=== PATIENT | male | born 1990 | race Caucasian/White ===

== ENCOUNTER 2022-12-01 17:15 | Emergency (ER) | payer MEDICARE, MEDICAID, SELFPAY ==
[2022-12-01 17:16] VITALS: BP 143/130; PULSE 102; RESP 14; TEMP 36.2; O2SAT 98; BMI 29.5
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
== END 2022-12-01 19:17 | disposition home or self-care (01) ==
PROVIDERS: Emergency Provider Emergency Medicine; Visit Provider Emergency Medicine
DX: S63.91XA Sprain of unspecified part of right wrist and hand, initial encounter (principal); S60.221A Contusion of right hand, initial encounter; F17.200 Nicotine dependence, unspecified, uncomplicated; W17.89XA Other fall from one level to another, initial encounter
CPT/HCPCS: 73110; 73130; 99283

== ENCOUNTER 2024-03-18 17:11 | Inpatient (IN) | payer MEDICARE, MEDICAID, SELFPAY ==
[2024-03-18 17:14] VITALS: BP 175/124; PULSE 76; RESP 18; TEMP 36.4; O2SAT 100; BMI 29.9
[2024-03-18 17:54] LABS: Absolute Lymphocyte Count 1.71 X10^3/uL (0.83-4.51); Basophil# 0.06 X10^3/uL; Basophil% 0.4 % (0-1); Eosinophil# 0.09 X10^3/uL; Eosinophils% 0.6 % (0-5); Hematocrit 54.2 % (40-54); Lymphocyte # 1.71 X10^3/ul (0.83-4.51); Lymphocyte % 10.9 % (19-41); Mean Corp Hgb Conc 34.3 g/dL (32-36); Mean Corpuscular Volume 93.3 fL (80-94); Mean Platelet Vol. 9.1 fl (6.2-12.0); Monocyte% 4.5 % (0-10); NRBC Flagged by Analyzer 0 % (0-5); Neutrophil # 12.98 X10^3/uL (2.7-7.7); Platelet Count 198 K/mm3 (150-450); RBC Distribution Width CV 12.9 % (11.6-14.6); RBC Distribution Width SD 44.1 fl (35.1-43.9); Red Blood Count 5.81 M/mm3 (4.6-6.2); White Blood Count 15.6 K/mm3 (4.4-11.0)
[2024-03-18 18:13] LABS: ALB/GLOB Ratio 1.2 RATIO (0.9-2.4); AST(SGOT) 33 U/L (15-37); Alanine Aminotransfer ALT/SGPT 60 U/L (16-61); Albumin, Serum 4.3 g/dL (3.2-5.0); Alkaline Phosphatase 81 U/L (45-117); Anion Gap 7 (5-15); BUN 12 mg/dL (7-18); BUN/Creat Ratio 11.8 RATIO (10-20); Calcium,Total 9.8 mg/dL (8.5-10.1); Chloride 103 mmol/L (98-107); Creatinine, Serum 1.02 mg/dL (0.70-1.30); EST Glomerular Filtration Rate 88 mL/min (>60); Est Glom Filt Rate - Afr Amer 107 mL/min (>60); Estimated Creatinine Clearance 109.83 ml/min; Globulin 3.5 g/dL (2.2-4.2); Glucose 98 mg/dL (74-106); Protein, Total 7.8 g/dL (6.4-8.2); Sodium Level 135 mmol/L (136-145)
[2024-03-18 18:40] LABS: Bacteria 0 SEEN /hpf (None Seen); Mucous, Urine 0 SEEN /hpf (<or=2+); Red Blood Cells-Urine 0 SEEN /hpf (0-5); Squamous Epithelial Cells - UA 0 SEEN /hpf (0-5); White Blood Cells 0 SEEN /hpf (0-5)
[2024-03-18 18:41] LABS: Hemoglobin 18.6 g/dL (13.0-16.5)
--- NOTE | 2024-03-18 18:49 | CT_ITS ---
STUDY: CT ABDOMEN AND PELVIS WITH CONTRAST REASON FOR EXAM: Male, 34 years old. RUQ /RIGHT FLANK PAIN RADIATION DOSAGE (If Supplied By Facility): CTDIvol = ( 13.78 ) mGy, DLP = ( 971.59 ) mGycm TECHNIQUE: Transaxial images were obtained from the dome of the diaphragm to the symphysis pubis without oral contrast. IV 75mL Isovue-370 was administered. Sagittal and coronal images were reconstructed. Individualized dose optimization techniques were used for this CT. COMPARISON: None. FINDINGS: The visualized lung bases are unremarkable. The visualized portions of the heart are within normal limits. There is hepatomegaly with diffuse hepatic enlargement. There is gallbladder wall thickening. There is mild splenomegaly. Normal pancreas. Normal bilateral adrenal glands. Normal right kidney. Normal left kidney. Normal visualized stomach. Normal small intestine. Normal colon. The appendix is visualized and appears normal. Normal abdominal aorta. Normal inferior vena cava. Normal retroperitoneum. Normal urinary bladder. There is no free fluid in the abdomen or pelvis. Normal abdominal wall. There is lumbar dextro scoliosis with degenerative change at L4-5. CT/Abdomen/Pelvis W IV Cont ONLY IMPRESSION: Gallbladder wall thickening. Hepatosplenomegaly. No biliary dilatation. Consider ultrasound to evaluate for potential stones. Electronically Signed: Tyrone Spivey MD at 19:59 EDT ,
[2024-03-18 18:50] LABS: Color, Urine Straw (Yellow); Glucose, Dipstick Normal (Normal); Ketone-Dipstick Negative (Negative); Leukocyte Esterase-Dipstick Negative /ul (Negative); Nitrite-Dipstick Negative (Negative); Occult Blood-Urine Negative /ul (Negative); Protein-Dipstick Negative (Negative); Specific Gravity, Urine 1.015 (1.002-1.030); Urine Bilirubin Dipstick Negative (Negative); Urine Clarity Clear (Clear); Urine Urobilinogen Normal (Normal)
--- NOTE | 2024-03-18 18:52 | ED.VIS.GI ---
HPI HPI - GI History of Present Illness Chief Complaint: Abd Pain Narrative Narrative: 34-year-old male who denies significant past medical history although he states he smokes marijuana, is a smoker, drinks alcohol presents with epigastric and right upper quadrant pain that began this morning. Hard for him to describe what type of pain that is. He states he had a bowel movement this morning, which then turned into small amounts and almost constipation. He denies any fevers or chills. He tried to make himself gag and vomit, but only regurgitated stomach contents/bile. He denies any exacerbating or alleviating factors. No prior abdominal surgeries. [facility] Medical History (Updated 03/18/24 @ 22:02 by Bari Cordero MD) TBI (traumatic brain injury) Home Medications ?Medication ?Instructions ?Recorded ?Last Taken ?Type NK 03/18/24 Unknown History Allergy/AdvReac Type Severity Reaction Status Date / Time clonidine Allergy PT UNSURE Verified 03/18/24 18:18 OF REACTION amphetamine (From Adderall) AdvReac Other Verified 03/18/24 18:18 dextroamphetamine (From AdvReac Other Verified 03/18/24 18:18 Adderall) Social History Smoking Status: Light Smoker (<10/day) ROS ROS ED ROS Narrative Constitutional: No fever, no chills. HEENT: No sore throat. No neck pain. No loss of vision. No rhinorrhea. Cardiovascular: No chest pain. No palpitations. No pedal edema. Respiratory: No cough, no shortness of breath. Abdominal: Epigastric to right upper quadrant abdominal pain. Mild nausea. No vomiting. Genitourinary: No dysuria. No hematuria. Musculoskeletal: No myalgias. No arthralgias. Neurologic: No headaches. No dizziness. No lightheadedness. Skin: No rash. No change in color. Psychiatric: No depression. No anxiety. EXAM Physical Exam Narrative Exam Narrative: Afebrile. Vital signs noted. HEENT: Normocephalic. Atraumatic. PERRL, EOMI. Neck soft and supple. No point tenderness or step off. Cardiovascular: Regular rate and rhythm. No murmurs, rubs, or gallops appreciated. Respiratory: No tachypnea. Lungs clear to auscultation bilaterally. Gastrointestinal: Abdomen soft, mild tenderness right upper quadrant with normoactive bowel sounds. No rebound or guarding. No pain over McBurney's point. No peritoneal signs. Neurological: Awake. Alert. Nonfocal, nonlateralizing. Skin: No rash. Normal color. No pallor. Musculoskeletal: No pedal edema. Full range of motion extremities. Const Vital Signs: 03/18/24 17:14 03/18/24 19:12 03/18/24 21:00 Temperature 97.5 F L Temperature Source Temporal Pulse Rate 76 78 Respiratory Rate 18 18 18 Blood Pressure 175/124 H 178/100 H Blood Pressure Mean 141 126 Pulse Ox 100 100 Oxygen Delivery Method Room Air Room Air Room Air MDM MDM MDM Narrative Medical decision making narrative: Differential diagnosis includes but not limited to colitis versus cholecystitis versus pancreatitis. Initial laboratory work was drawn per nursing protocol. I reviewed his laboratory work and he does have an elevated white count of 15.6 with hemoconcentration of his hemoglobin at 18.6 and hematocrit 54.2, platelet count 198. Sodium is slightly low at 135 with normal potassium of 4.0, BUN normal at 12 with creatinine 1.02, glucose appropriately elevated at 98. LFTs are grossly unremarkable. I added a lipase. Instead of specific ultrasound of the right upper quadrant I thought it best as he has normal liver enzymes to obtain CT imaging with IV contrast to look for any inflammation around the gallbladder and to look at the pancreas as well as he states that he drinks alcohol almost on a daily basis. Urinalysis obtained and is negative for infection. In review of his CT scan radiology report, he has a thickened gallbladder wall and hepatosplenomegaly. Given these findings along with his elevated white count, suspicion is higher for cholecystitis. Gallbladder ultrasound was obtained and radiology report reviewed as well which shows cholecystitis and gallstone with pericholecystic fluid. Patient had been discussed with Dr. Reagan with surgery who admitted the patient to the hospital for surgery tomorrow. Disposition is admit in stable condition. History & Record Review Discussion w/independent historian: Patient Lab Data Attestation: I reviewed the patient's lab results. Labs: Laboratory Results - last 24 hr 03/18/24 03/18/24 03/18/24 17:45 18:35 18:52 WBC 15.6 H RBC 5.81 Hgb 18.6 H* Hct 54.2 H MCV 93.3 MCH 32.0 MCHC 34.3 RDW Std Deviation 44.1 H RDW Coeff of Lucretia 12.9 Plt Count 198 MPV 9.1 Immature Gran % (Auto) 0.600 Neut % (Auto) 83.0 H Lymph % (Auto) 10.9 L Griggs % (Auto) 4.5 Eos % (Auto) 0.6 Baso % (Auto) 0.4 Absolute Neuts (auto) 13.0 H Absolute Lymphs (auto) 1.71 Nucleated RBC % 0 Sodium 135 L Potassium 4.0 Chloride 103 Carbon Dioxide 25.0 Anion Gap 7 BUN 12 Creatinine 1.02 Estim Creat Clear Calc 109.83 Est GFR (MDRD) Af Amer 107 Est GFR (MDRD) Non-Af 88 BUN/Creatinine Ratio 11.8 Glucose 98 Calcium 9.8 Total Bilirubin 0.60 AST 33 ALT 60 Alkaline Phosphatase 81 Total Protein 7.8 Albumin 4.3 Globulin 3.5 Albumin/Globulin Ratio 1.2 Lipase 29 Urine Color Straw Urine Clarity Clear Urine pH 6.0 Ur Specific [place] 1.015 Urine Protein Negative Urine Glucose (UA) Normal Urine Ketones Negative Urine Occult Blood Negative Urine Nitrite Negative Urine Bilirubin Negative Urine Urobilinogen Normal Ur Leukocyte Esterase Negative Urine RBC 0 SEEN Urine WBC 0 SEEN Ur Squamous Epith Cells 0 SEEN Urine Bacteria 0 SEEN Urine Mucus 0 SEEN Radiography Diagnostic Testing: Clinical Impression(s) from Imaging Studies Abdomen/Pelvis CT 03/18/24 18:49 IMPRESSION: Gallbladder wall thickening. Hepatosplenomegaly. No biliary dilatation. Consider ultrasound to evaluate for potential stones. Electronically Signed: Tyrone Spivey MD at 19:59 EDT , Gallbladder Ultrasound 03/18/24 20:44 IMPRESSION: Cholecystitis with gallstone, gallbladder wall thickening, and pericholecystic fluid. The patient was focally tender in the region of the gallbladder. Fatty infiltration of the liver. No biliary dilatation. Electronically Signed: Tyrone Spivey MD at 21:59 EDT , Discharge Plan Dx/Rx/DC Orders Clinical Impression: Acute cholecystitis Disposition Disposition: Acute Care Hospital [facility]
[2024-03-18] MEDS: 0.9% Normal Saline (1000mL) 1,000 ML 999 ML IV (18:56)
[2024-03-18 19:12] VITALS: BP 178/100; RESP 18
[2024-03-18 19:31] LABS: Lipase 29 U/L (13-75)
--- NOTE | 2024-03-18 20:44 | US_ITS ---
STUDY: ABDOMINAL ULTRASOUND - RIGHT UPPER QUADRANT REASON FOR VISIT: Male, 34 years old Pain TECHNIQUE: Ultrasound evaluation of the right upper quadrant was performed with real-time and static vásquez-scale imaging. TECHNICAL QUALITY: Adequate. COMPARISON: CT FINDINGS: Liver: The liver measures 18.1 cm. There is increased echogenicity consistent with fatty infiltration. The bile ducts are within normal limits. There is hepatic color flow. The direction of portal flow is hepatopetal. There is no demonstrated mass lesion. Gallbladder: Normal distended gallbladder. The gallbladder wall measures 4 mm. There is a positive sonographic Jackson''s sign. There is pericholecystic fluid. There is a solitary echogenic gallstone within the gallbladder. Common Bile Duct (C.B.D.): The common bile duct measures 5 mm. Pancreas: Normal size of the head, body and tail of the pancreas. There is normal echogenicity of the pancreas. There is no demonstrated pancreatic mass or cyst. Right Kidney: Normal size of the right kidney. The right kidney measures 10.9 cm. Normal renal cortex. The right cortex measures 1.1 cm. There is no demonstrated renal mass or cyst. There is no right hydronephrosis. US/Gallbladder IMPRESSION: Cholecystitis with gallstone, gallbladder wall thickening, and pericholecystic fluid. The patient was focally tender in the region of the gallbladder. Fatty infiltration of the liver. No biliary dilatation. Electronically Signed: Tyrone Spivey MD at 21:59 EDT ,
[2024-03-18 21:00] VITALS: PULSE 78; RESP 18; O2SAT 100
--- NOTE | 2024-03-18 21:32 | ED.RN ---
Pt called out twice asking to leave because he's hungry. This RN informed pt that he can leave but recommends that he stay d/t further testing requested by doctor.
--- NOTE | 2024-03-18 21:56 | PCM.HP.STD ---
HPI - General HPI Narrative DOUGLAS FLORES, is a 34 M who presents with abdominal pain that started when he woke up this morning. He says the abdominal pain is in the right upper quadrant does not radiate. He said he tried to make himself vomit to make himself feel better but it did not. He denies any nausea. He denies fevers or chills. He has never had this pain before. PFSH Home Medications ?Medication ?Instructions ?Recorded ?Last Taken ?Type NK 03/18/24 Unknown History Allergy/AdvReac Type Severity Reaction Status Date / Time clonidine Allergy PT UNSURE Verified 03/18/24 18:18 OF REACTION amphetamine (From Adderall) AdvReac Other Verified 03/18/24 18:18 dextroamphetamine (From AdvReac Other Verified 03/18/24 18:18 Adderall) Social History Smoking Status: Light Smoker (<10/day) Vital Signs Vital Signs Vital Signs: 03/18/24 17:14 03/18/24 19:12 03/18/24 21:00 Temperature 97.5 F L Temperature Source Temporal Pulse Rate 76 78 Respiratory Rate 18 18 18 Blood Pressure 175/124 H 178/100 H Blood Pressure Mean 141 126 Pulse Ox 100 100 Oxygen Delivery Method Room Air Room Air Room Air Weight Weight: 197 lb 3.2 oz Body Mass Index (BMI) 29.9 Physical Exam Const oriented x3 and no apparent distress Resp normal respiratory effort Cardio regular rate and regular rhythm GI soft to palpation Palpation: tender RUQ and Jackson's sign Extremity normal to inspection Results Lab / Micro Data 03/18/24 17:45 03/18/24 17:45 Labs: Laboratory Results - last 24 hr 03/18/24 17:45: WBC 15.6 H, RBC 5.81, Hgb 18.6 H*, Hct 54.2 H, MCV 93.3, MCH 32.0, MCHC 34.3, RDW Std Deviation 44.1 H, RDW Coeff of Lucretia 12.9, Plt Count 198, MPV 9.1, Immature Gran % (Auto) 0.600, Neut % (Auto) 83.0 H, Lymph % (Auto) 10.9 L, Kern % (Auto) 4.5, Eos % (Auto) 0.6, Baso % (Auto) 0.4, Absolute Neuts (auto) 13.0 H, Absolute Lymphs (auto) 1.71, Nucleated RBC % 0, Sodium 135 L, Potassium 4.0, Chloride 103, Carbon Dioxide 25.0, Anion Gap 7, BUN 12, Creatinine 1.02, Estim Creat Clear Calc 109.83, Est GFR (MDRD) Af Amer 107, Est GFR (MDRD) Non-Af 88, BUN/Creatinine Ratio 11.8, Glucose 98, Calcium 9.8, Total Bilirubin 0.60, AST 33, ALT 60, Alkaline Phosphatase 81, Total Protein 7.8, Albumin 4.3, Globulin 3.5, Albumin/Globulin Ratio 1.2 03/18/24 18:35: Urine Color Straw, Urine Clarity Clear, Urine pH 6.0, Ur Specific [place] 1.015, Urine Protein Negative, Urine Glucose (UA) Normal, Urine Ketones Negative, Urine Occult Blood Negative, Urine Nitrite Negative, Urine Bilirubin Negative, Urine Urobilinogen Normal, Ur Leukocyte Esterase Negative, Urine RBC 0 SEEN, Urine WBC 0 SEEN, Ur Squamous Epith Cells 0 SEEN, Urine Bacteria 0 SEEN, Urine Mucus 0 SEEN 03/18/24 18:52: Lipase 29 Imaging Radiology Impression Abdomen/Pelvis CT 03/18/24 18:49 IMPRESSION: Gallbladder wall thickening. Hepatosplenomegaly. No biliary dilatation. Consider ultrasound to evaluate for potential stones. Electronically Signed: Tyrone Spivey MD at 19:59 EDT Reading Location ID and State: [address] [place] [address] , Service support , Assessment & Plan Assessment/Plan (1) Acute cholecystitis: PLAN: The patient has acute cholecystitis with a large stone in the neck of the gallbladder. CT scan revealed thickening of the gallbladder wall and ultrasound confirmed a stone in the neck. I discussed laparoscopic cholecystectomy with the patient in detail. I discussed the procedure in detail with the patient. I discussed the risks, benefits, and alternatives of the procedure. I discussed the risks including but not limited to bleeding, infection, injury to surrounding organs such as the liver, bile duct, bowels. I did discuss the possibility of having to convert to an open procedure as well as the possibility that if any injuries occurred this may necessitate further surgery at a tertiary care center. Patient will be added on for surgery tomorrow. N.p.o. after 6 AM, IV fluids, antibiotics. Kevin Reagan MD Pager: [facility] [address] [place] [address], [address] [place] [address] Office:
[2024-03-18 22:25] VITALS: BP 184/112; PULSE 73; RESP 18; TEMP 36.4; O2SAT 98
[2024-03-18] MEDS: Morphine 4 MG/ML Syringe IV ×2 (22:27→23:33)
[2024-03-18 22:46] LABS: Absolute Lymphocyte Count 1.37 X10^3/uL (0.83-4.51); Absolute Neutrophil Count 11.4 X10^3/uL (2.0-7.7); Basophil# 0.04 X10^3/uL; Basophil% 0.3 % (0-1); Eosinophil# 0.14 X10^3/uL; Hematocrit 47.4 % (40-54); Hemoglobin 16.3 g/dL (13.0-16.5); Lymphocyte # 1.37 X10^3/ul (0.83-4.51); Mean Corp Hgb Conc 34.4 g/dL (32-36); Mean Corpuscular Hgb 32.1 pg (27.0-32.0); Mean Corpuscular Volume 93.3 fL (80-94); Monocyte% 5.1 % (0-10); NRBC Flagged by Analyzer 0 % (0-5); Neutrophil # 11.38 X10^3/uL (2.7-7.7); Neutrophil % 83.2 % (47-70); Platelet Count 162 K/mm3 (150-450); RBC Distribution Width CV 12.6 % (11.6-14.6); RBC Distribution Width SD 43.6 fl (35.1-43.9); Red Blood Count 5.08 M/mm3 (4.6-6.2); White Blood Count 13.7 K/mm3 (4.4-11.0)
[2024-03-18 23:09] VITALS: BP 168/127; PULSE 73; RESP 18; TEMP 36.9; O2SAT 99
[2024-03-18 23:14] VITALS: BMI 29.7
[2024-03-18] MEDS: 0.9% Normal Saline (250mL Bag) 250 ML 15 ML IV (23:24)
[2024-03-18] MEDS: Piperacil/Tazobactam 3.375 GM in 0.9% Normal Saline (50mL MB+) 50 ML IV (23:25)
[2024-03-18] MEDS: 0.9% Saline Lock 10 ML Syringe IV ×2 (23:26→23:33)
[2024-03-18] MEDS: 0.9% Normal Saline (1000mL) 1,000 ML 100 ML IV (23:27)
[2024-03-19] VITALS (10 sets, daily range): BP systolic 138–166; BP diastolic 90–116; PULSE 77–118; RESP 13–20; TEMP 36.7–37.7; O2SAT 92–98
[2024-03-19] MEDS: Morphine 4 MG/ML Syringe IV (02:35)
[2024-03-19] MEDS: 0.9% Saline Lock 10 ML Syringe IV ×2 (02:35→09:48)
[2024-03-19] MEDS: Piperacil/Tazobactam 3.375 GM in 0.9% Normal Saline (50mL MB+) 50 ML IV ×2 (05:26→15:08)
[2024-03-19] MEDS: Ondansetron 4 MG/2 ML Vial IV (05:51)
--- NOTE | 2024-03-19 05:55 | EKG12_ITS ---
Test Reason : PRE OP Blood Pressure : / mmHG Vent. Rate : 073 BPM Atrial Rate : 073 BPM P-R Int : 108 ms QRS Dur : 076 ms QT Int : 412 ms P-R-T Axes : -20 031 024 degrees QTc Int : 453 ms Sinus rhythm with short LA Otherwise normal ECG No previous ECGs available Confirmed by NATE SAPP, PRANAV ([id number]), editor managing newspaper JAMIR WISE ([id number]) on 03/21/2024 7:26:57 AM Referred By: MIMI Confirmed By:BHAVNA SULLIVAN MD
[2024-03-19 07:25] LABS: Absolute Lymphocyte Count 1.23 X10^3/uL (0.83-4.51); Absolute Neutrophil Count 11.5 X10^3/uL (2.0-7.7); Basophil# 0.04 X10^3/uL; Basophil% 0.3 % (0-1); Eosinophil# 0.09 X10^3/uL; Eosinophils% 0.7 % (0-5); Hematocrit 49.4 % (40-54); Hemoglobin 16.9 g/dL (13.0-16.5); Lymphocyte # 1.23 X10^3/ul (0.83-4.51); Lymphocyte % 8.9 % (19-41); Mean Corp Hgb Conc 34.2 g/dL (32-36); Mean Corpuscular Hgb 31.9 pg (27.0-32.0); Mean Corpuscular Volume 93.2 fL (80-94); Mean Platelet Vol. 9.7 fl (6.2-12.0); Monocyte# 0.85 X10^3/uL; Monocyte% 6.2 % (0-10); NRBC Flagged by Analyzer 0 % (0-5); Neutrophil # 11.53 X10^3/uL (2.7-7.7); Neutrophil % 83.5 % (47-70); Platelet Count 168 K/mm3 (150-450); RBC Distribution Width CV 12.7 % (11.6-14.6); RBC Distribution Width SD 43.3 fl (35.1-43.9); White Blood Count 13.8 K/mm3 (4.4-11.0)
[2024-03-19 08:22] LABS: ALB/GLOB Ratio 1.1 RATIO (0.9-2.4); AST(SGOT) 118 U/L (15-37); Alanine Aminotransfer ALT/SGPT 100 U/L (16-61); Albumin, Serum 3.7 g/dL (3.2-5.0); Alkaline Phosphatase 87 U/L (45-117); Anion Gap 6 (5-15); BUN 7 mg/dL (7-18); BUN/Creat Ratio 6.7 RATIO (10-20); Calcium,Total 8.9 mg/dL (8.5-10.1); Chloride 101 mmol/L (98-107); Creatinine, Serum 1.04 mg/dL (0.70-1.30); EST Glomerular Filtration Rate 86 mL/min (>60); Est Glom Filt Rate - Afr Amer 104 mL/min (>60); Estimated Creatinine Clearance 107.58 ml/min; Globulin 3.4 g/dL (2.2-4.2); Glucose 122 mg/dL (74-106); Potassium 3.9 mmol/L (3.5-5.1); Protein, Total 7.1 g/dL (6.4-8.2); Sodium Level 132 mmol/L (136-145)
[2024-03-19 09:05] LABS: Prothrombin Time (Protime)PT. 13.6 SECONDS (11.7-14.9)
[2024-03-19 09:06] LABS: Partial Thromboplast Time 25.8 Seconds (24.1-36.2)
[2024-03-19] MEDS: 0.9% Normal Saline (1000mL) 1,000 ML 100 ML IV (09:22)
[2024-03-19 09:32] LABS: Bilirubin, Direct 0.86 mg/dL (0.00-0.30)
[2024-03-19] MEDS: Morphine 2 MG/ML Syringe IV (09:48)
--- NOTE | 2024-03-19 12:08 | PCM.PRE.AN2 ---
ASA Classification* ASA Classification ASA Classification: 3 (eleve bp post op. disscussed with dr dial to have patient f/u with hospitalist to get bp under control and send home with Rx for his elevated bp with proper medical f/u as outpt) and E Assessment & Plan Anesthesia* Anesthesia Assessment Anesthesia Assessment: Discussed sedation and/or anesthesia options, risks, benefits, and alternatives with patient/parents/legal guardian/POA. Questions invited. The patient/parents/legal guardian/POA seems to understand and agrees to proceed with anesthesia plan. Reviewed the physical assessment, medical history, allergy history and patient home medications list prior to surgery/procedure/anesthetic and documented any changes. Performed airway and anesthesia risk assessments. Anesthesia Type Anesthesia Type: General (see written pre anesthesia record for full assessment) Anesthesia Focused Assessment* Temperature: 98.1 F Pulse Rate: 77 Blood Pressure: 166/109 Respiratory Rate: 13 Pulse Ox: 97 Airway Assessment Mouth opens: >3 cm Mallampati Score: II Focused Labs Anesthesia Preop lab: CBC WBC 13.8 K/mm3 (4.4-11.0) H 03/19/24 06:36 RBC 5.30 M/mm3 (4.6-6.2) 03/19/24 06:36 Hgb 16.9 g/dL (13.0-16.5) H 03/19/24 06:36 Hct 49.4 % (40-54) 03/19/24 06:36 Plt Count 168 K/mm3 (150-450) 03/19/24 06:36 CHEMISTRY Potassium 3.9 mmol/L (3.5-5.1) 03/19/24 06:36 Sodium 132 mmol/L (136-145) L 03/19/24 06:36 BUN 7 mg/dL (7-18) 03/19/24 06:36 Creatinine 1.04 mg/dL (0.70-1.30) 03/19/24 06:36 Glucose 122 mg/dL (74-106) H 03/19/24 06:36 COAG PT 13.6 SECONDS (11.7-14.9) 03/19/24 06:36 Pre-Assessment Diagnosis/Proposed Procedure Planned Operative Procedure(s): lap pamela Anesthesia History 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 When Was Last Pacemaker Check QUESTION #4 FULL TEXT: You/Your Family Experience fever (hyperthermia) with Anesthesia Last Oral Intake Last Oral intake: Last Oral Intake NPO since Meds taken in AM with sips of water? Meds patient instructed to take am of surgery PONV PONV - dry cell and battery assembler: PONV - dry cell and battery assembler Female HX of Motion Sickness HX of N/V After Surgery Non-Smoker Duration of Surgery greater than 60 minutes Number of Risk Factors PONV Score Height & Weight Height & Weight: Anesthesia: Height & Weight Height 5 ft 8.11 in 03/18/24 23:14 Weight: 89.2 kg 03/18/24 23:14 Body Mass Index (BMI) 29.7 03/18/24 23:14 Respiratory Assessment Respiratory Assessment - dry cell and battery assembler: Respiratory Tract Infection Hx - dry cell and battery assembler Hx Respiratory Tract Infection No 03/18/24 23:24 STOP Sleep Apnea STOP Sleep Apnea - dry cell and battery assembler: STOP Sleep Apnea - dry cell and battery assembler Hx Hypertension Yes 03/18/24 23:16 Hx Sleep Apnea No 03/18/24 23:16 CPAP BIPAP Do you snore loudly (louder No 03/18/24 23:16 than talking or can be heard Do you often feel tired/ No 03/18/24 23:16 fatigued/ sleepy during daytime? Has anyone observed you stop No 03/18/24 23:16 breathing during sleep? STOP Results Negative 03/18/24 23:16 QUESTION #5 FULL TEXT : Do you snore loudly (louder than talking or can be heard through closed doors)? Tobacco Use History Tobacco Use History - dry cell and battery assembler: Tobacco Use History - dry cell and battery assembler Tobacco Use Smoking Status Light Smoker (<10/day) 03/18/24 23:16 Hx Tobacco Use Yes 03/18/24 23:16 Years Smoking Packs Smoked per Day Smoking Cessation Date was within the last 15 years Hx Smoking Cessation Date Hx Smoking Cessation No 03/18/24 23:16 Counseling Hematologic Medial History Hematologic Hx - dry cell and battery assembler: Hematologic Medical Hx - orthopedic physician assistant Hx of Blood Transfusion Yes 03/18/24 23:16 Hx of Transfusion in last 3 No 03/18/24 23:16 Months Date of Last Transfusion (if within last 3 months) Ever experience any problems No 03/18/24 23:16 with transfusion(s)? Specify any problems Hx of Preganancy in last 3 N/A 03/18/24 23:16 Months Nurse Filling Out Transfusion CSIGNORIN 03/18/24 23:16 & Questions: Date: 03/18/24 03/18/24 23:16 Time: 23:17 03/18/24 23:16 Patient unable to answer at this time (ie. confused, unrespo /Reproduction History /Reproductive History - dry cell and battery assembler: /Reproductive Hx- dry cell and battery assembler Hx Now Gestational Age (in weeks): EDC: Hx Hx Para Hx Section SAB Active Medications Active Medications: Current Medications Generic Name Dose Route Start Last Admin Trade Name Freq PRN Reason Stop Dose Admin Acetaminophen 650 mg 03/18/24 21:53 Acetaminophen 325 Mg Tablet PO Q4H PRN PRN Pain 1-10 or Fever Sodium Chloride 1,000 mls @ 100 mls/hr 03/18/24 21:55 03/19/24 09:22 IV 100 mls/hr .Q10H NICOLAS Administration Piperacillin Sod/Tazobactam 50 mls @ 12.5 mls/hr 03/18/24 22:40 03/19/24 09:26 Sod 3.375 gm/ Sodium Chloride IV Infused Q8 NICOLAS Infusion Sodium Chloride 250 mls @ 15 mls/hr 03/18/24 23:09 03/19/24 05:25 IV 0 mls/hr .[id number] PRN Infusion Additional IVPB Infusion Sodium Chloride 250 mls @ 15 mls/hr 03/18/24 23:09 IV .[id number] PRN Saline Flush Morphine Sulfate 2 - 4 mg 03/18/24 21:53 03/19/24 09:48 Morphine 2 Mg/Ml Syringe IV 4 mg Q2H PRN PRN Administration Pain Score 4-10 Morphine Sulfate 2 - 4 mg 03/18/24 22:36 03/19/24 02:35 Morphine 4 Mg/Ml Syringe IV 4 mg Q2H PRN PRN Administration Pain Score 4-10 Ondansetron HCl 4 mg 03/18/24 21:53 03/19/24 05:51 Ondansetron 4 Mg/2 Ml Vial IV 4 mg Q6H PRN PRN Administration NAUSEA/VOMITING Sodium Chloride 10 - 40 ml 03/18/24 21:53 03/19/24 09:48 0.9% Saline Lock 10 Ml Syringe IV 20 ml UD PRN Administration SALINE FLUSH Sodium Chloride 10 - 40 ml 03/18/24 21:55 0.9% Saline Lock 10 Ml Syringe IV UD PRN SALINE FLUSH Sodium Chloride 10 - 40 ml 03/18/24 23:09 0.9% Saline Lock 10 Ml Syringe IV UD PRN SALINE FLUSH PFSH Medical History Substance use Alcohol use Injury of head and neck HTN (hypertension) TBI (traumatic brain injury) Home Medications ?Medication ?Instructions ?Recorded ?Last Taken ?Type NK 03/18/24 Unknown History Allergy/AdvReac Type Severity Reaction Status Date / Time clonidine Allergy PT UNSURE Verified 03/18/24 18:18 OF REACTION amphetamine (From Adderall) AdvReac Other Verified 03/18/24 18:18 dextroamphetamine (From AdvReac Other Verified 03/18/24 18:18 Adderall) Surgical History Hx of neck surgery Previous back surgery Social History Smoking Status: Light Smoker (<10/day) Review of Systems (Anesthesia) ROS Narrative System reviewed and no additional complaints, except as documented.
[2024-03-19] MEDS: Bupiv/Epi 0.25% 30 ML Vial (13:05)
--- NOTE | 2024-03-19 13:15 | OP.PCM_ITS ---
Report of Operation Date of Procedure: 03/19/24 Pre-Operative Diagnosis: Acute cholecystitis Post-Operative Diagnosis: Acute cholecystitis Surgery/Procedure Performed:: Laparoscopic cholecystectomy Type of Anesthesia: Local MAC Specimen's removed: Gallbladder Estimated Blood Loss (mL): 20 Description of Procedure: After obtaining informed consent patient was brought back to the operating room. General anesthesia was induced. The abdomen was prepped and draped in usual sterile fashion. A small midline incision was made superior to the umbilicus and deepened to the level of fascia. The fascia was elevated and incised. Next the peritoneum was elevated and incised in the same fashion. Finger sweep was performed and the Cantu trocar was placed into the abdomen. The balloon was inflated. The abdomen was inflated to 15 mmHg. Next a camera was introduced into the abdomen and the abdomen was inspected. Next under direct visualization three 5-mm ports were placed one subxiphoid and 2 subcostal. Next the gallbladder was elevated and retracted toward the right shoulder. The peritoneum was stripped from the gallbladder. The gallbladder was very inflame d. It was aspirated using the aspirating needle and contained hydrops. The infundibulum was located and retracted laterally. Next the triangle of Calot was dissected and the cystic duct and cystic artery were identified. Cholangiograms were performed. The Berry clamp was used to clamp across the infundibulum and the catheter needle was inserted into the gallbladder. Under fluoroscopy contrast was instilled into the gallbladder and the common duct, cystic duct as well as proximal hepatic ducts were identified. There was good filling of the duodenum. There were no filling defects noted in the common bile duct. The clamp was removed as well as the needle and the infundibulum was grasped once more. Three hemolock clips were placed across the cystic duct. The cystic duct was then divided leaving 2 clips on the stump. The cystic artery was clipped and divided in the same fashion. The hook cautery was then used to take the gallbladder off of the gallbladder bed. Hemostasis was ob tained. Gallbladder fossa was irrigated and no active bleeding or bile leakage was noted. Next the camera was introduced in the subxiphoid port. An Endopouch bag was placed through the umbilical port and the gallbladder was placed into it. The gallbladder was then removed through the umbilical incision. The camera was then reinserted through the umbilical port. Argon beam coagulation was used to obtain hemostasis. The gallbladder fossa was inspected once more and noted to be hemostatic with no leaking bile. The abdomen was suctioned dry. The 5 mm ports were removed under direct visualization. The umbilical port was then removed and the air was removed from the abdomen. Next using an 0 Vicryl suture the umbilical fascia was closed in a [id number] fashion. The umbilical port site was irrigated local anesthetic was administered to all the incisions. All the incisions were closed with interrupted subcuticular 4-0 Monocryl sutures followed by Steri-Strips and dressings. The patient was awoken and taken to PACU in stable condition. Admit VTE Documentation VTE Mechan Device Prophylaxis: SCD's
[2024-03-19 13:16] LABS: Pathologist Review Reviewed
--- NOTE | 2024-03-19 13:18 | EX.PCM.DISCH ---
Discharge Instructions Procedure Gallbladder Diet Discharge Diet: Light diet - advance as tolerated Activity Discharge Activity: May Not Drive (for 2-3 days or while taking narcotic pain medications.) and - (Do not drive, work heavy equipment or sign legal documents for 24 hours.) May shower in (days): 1 Lifting Restrictions: 20 lbs for 2 weeks Additional Activity Instructions:: Pain medication may cause nausea. You should typically eat light foods as you take your pain medications. Pain medication may also cause constipation. If this is a problem for you, please discuss with your doctor. Alternate ibuprofen and Tylenol for pain control, oxycodone for breakthrough pain Take the amlodipine daily and see your primary care to discuss hypertension Dressing / Incision Call your doctor if your incision/area has: Continuous Slow Oozing, Sudden Increased Bleeding, Increased Pain/ Swelling, Increased Redness and Foul Smelling Discharge Call your doctor if you observe: Fever of 101 or Higher Suture Line Care: Avoid Pulling/Pushing and Avoid Pinching/Bending Remove Dressing in: 2 days Additional Dressing/Incision Instructions:: Leave operative bandaids on for 2 days. Remove Steri-Strips in 7 to 10 days Follow Up Care Please Follow Up With: Kevin Reagan MD When: Please call to schedule 2 week follow up appointment. [phone] Test Results: Test results from this visit will be discussed in further detail at your follow-up appointment, if applicable. Discharge Plan Admission Admit Date/Time: 03/18/24 21:53 Attending Provider: Kevin Reagan Primary Care Provider: Care Physician,Ethel Primary Discharge Orders/Prescriptions Prescriptions: New amlodipine 5 mg Tablet 5 mg PO DAILY Qty: 30 2RF oxycodone 5 mg Tablet 5 - 10 mg PO Q4H PRN PRN (Reason: Pain Score 4-10) 5 Days Qty: 20 0RF Referrals / Follow Up: Care Physician,No Primary [Primary Care Provider] - Disposition Disposition (needs filled in before D/C Order can be placed): Home, Self Care
--- NOTE | 2024-03-19 13:30 | GALL_PTH ---
PATIENT: DOUGLAS FLORES LOC: [facility] U#:[id number] AGE/SX: 34/M ROOM: MS309 RE03/18/[address]: Dr. Kevin Reagan MD : 1990 BED: 1 DIS: 03/19/2024 SPEC #: [id number] RECD: 03/19/24 16:59 STATUS: MARISEL NORMAN #: [id number] ALBERTO: 03/19/24 13:[address]: Kevin Reagan DEPT: SURGICAL PATHOLOGY RECD BY: Anusha Delatorre ENTERED: 03/20/24 09:09 SP TYPE: SARAI HAMILTON DR: No Primary Care Phys Tissues: Gallbladder, NOS Procedures: Surgery Specimen Level III HEADER OPERATION: Laparoscopic, cholecystectomy PRE-OP DIAGNOSIS: Acute cholecystitis TISSUE SUBMITTED: Gallbladder MICROSCOPIC DIAGNOSIS Gallbladder, cholecystectomy: Acute cholecystitis and cholelithiasis. Bening pericystic lymph node. AM.mr 03/21/2024 MICROSCOPIC DESCRIPTION Slides are reviewed. GROSS DESCRIPTION Received is one container labeled with the patient's name and designated gallbladder. The specimen consists of a gallbladder measuring 13.0 cm in length and up to 4.0 cm in diameter. The external surface is pink-cordova, smooth and glistening for the most part. Focally it is granular, hemorrhagic and contains cautery artifact. The gallbladder contains brown- slightly hemorrhagic bile and one ovoid brownish-black stone measuring in aggregate 3.0 x 2.0 x 1.5 cm. The mucosa is congested and hemorrhagic. The gallbladder wall measures up to 0.7 cm in thickness. Also present adjacent to the cystic duct is an ovoid nodule, a possible lymph node measuring 1.5 x 0.6 x 0.6cm. Headhunter sections from the gallbladder, the cystic duct and entire lymph node are submitted in two cassettes. / SJ: 03/20/2024 TC:2 CPT: [id number]
--- NOTE | 2024-03-19 13:42 | PCM.POST.ANE ---
Anesthesia: Postop Eval I Current Vital Signs Temperature: 98.8 F Pulse Rate: 106 Blood Pressure: 155/95 Respiratory Rate: 18 Pulse Ox: 97 Oxygen Delivery Method: Room Air Assessment Airway patent: Yes Spontaneous unlabored respirations: Yes Mental status: Awake and Calm nausea: No Vomiting: No Anesthesia Complication: No Fluid Hydration Crystalloid volume administer (ml): 1,000 Total IV fluid infused: 1,000 Progress Note Anesthesia document: Postop Eval 1 completed: Yes
--- NOTE | 2024-03-19 14:31 | POSTOPAN2_ITS ---
Anesthesia Postop Eval I Sum Postop Eval Completion status Anesthesia document: Postop Eval 1 completed: Yes Anesthesia Postop Eval I Summary Anesthesia Postop Eval I Summary: Anesthesia Postop Eval I: Assessment Summary Airway patent Yes 03/19/24 13:43 BRIDGE RIGGER.TEEOBRosalee Spontaneous unlabored Yes 03/19/24 13:43 BRIDGE RIGGER.VIOLETTE respirations Mental status Awake,Calm 03/19/24 13:43 BRIDGE RIGGER.TEEOBRosalee nausea No 03/19/24 13:43 BRIDGE RIGGER.VIOLETTE Vomiting No 03/19/24 13:43 BRIDGE RIGGER.VIOLETTE Anesthesia Postop Eval I: Fluid Summary Crystalloid volume administer 1,000 03/19/24 13:43 BRIDGE RIGGER.TEEOBY (ml) Colloids volume administered ( ml) Blood Product volume administered (ml) Total IV fluid infused 1,000 03/19/24 13:43 BRIDGE RIGGER.VIOLETTE Anesthesia Postop Eval I: Summary Notes Anesthesia Complication No 03/19/24 13:43 BRIDGE RIGGER.VIOLETTE Anesthesia Complication Comment: Post-operative progress note Anesthesia: Postop Eval II Evaluation Mental status: Awake Pain Level: 0 nausea: No Vomiting: No
--- NOTE | 2024-03-19 14:31 | PCM.POSTANE2 ---
Anesthesia Postop Eval I Sum Postop Eval Completion status Anesthesia document: Postop Eval 1 completed: Yes Anesthesia Postop Eval I Summary Anesthesia Postop Eval I Summary: Anesthesia Postop Eval I: Assessment Summary Airway patent Yes 03/19/24 13:43 STUDENT TEACHING COORDINATOR.TEEOBRosalee Spontaneous unlabored Yes 03/19/24 13:43 STUDENT TEACHING COORDINATOR.VIOLETTE respirations Mental status Awake,Calm 03/19/24 13:43 STUDENT TEACHING COORDINATOR.TEEOBRosalee nausea No 03/19/24 13:43 STUDENT TEACHING COORDINATOR.VIOLETTE Vomiting No 03/19/24 13:43 STUDENT TEACHING COORDINATOR.VIOLETTE Anesthesia Postop Eval I: Fluid Summary Crystalloid volume administer 1,000 03/19/24 13:43 STUDENT TEACHING COORDINATOR.TEEOBY (ml) Colloids volume administered ( ml) Blood Product volume administered (ml) Total IV fluid infused 1,000 03/19/24 13:43 STUDENT TEACHING COORDINATOR.VIOLETTE Anesthesia Postop Eval I: Summary Notes Anesthesia Complication No 03/19/24 13:43 STUDENT TEACHING COORDINATOR.VIOLETTE Anesthesia Complication Comment: Post-operative progress note Anesthesia: Postop Eval II Evaluation Mental status: Awake Pain Level: 0 nausea: No Vomiting: No
--- NOTE | 2024-03-19 15:00 | CASEMGMT ---
IFEANYI CLARK Assessment: Face to Face with pt for initial transition planning/care coordination assessment. IFEANYI CLARK introduced self and role at [facility], pt voices understanding and consents to assessment. Pt is A&O x4 and answers all questions appropriately at this time. Pt lying in bed in no distress. Care providers, pharmacy, and demographics verified/updated. Admitting Dx:acute cholecystitis Strata: 1 PCP:PCP from the [facility] in [place] Specialists:Pt denies [facility]erred [facility]acy[facility] Insurance:[facility] [employer] Prescription Benefit: yes LNOK:Suzanne Ortega, mother Living Arrangements: Pt lives in the basement of a two story home with 3 steps to enter through the basement doors. Pt lives with mother. Pt reports he is I in ADLs and IADLs and denies concerns at home. Transportation: Pt doesn't drive. Pt uses his bicycle or his mother transports him. Pt denies concerns with transportation. DME:walking sticks- denies AD use HHC/SNF:Pt denies hx of Pt states no concerns with going home at time of dc. Pt states no further concerns/needs. CM to follow. Advised pt to ask CM if any further question/concerns/needs arise, voices understanding. Pt Goal:Home Plan:Home
== END 2024-03-19 17:12 | disposition home or self-care (01) | DRG 419 ==
LOC: ED 22:02 → MS3 22:30
PROVIDERS: Anesthesiology; Admitting Provider Surgery; Emergency Provider Emergency Medicine; Visit Provider Surgery
PROC: 0FT44ZZ Resection of Gallbladder, Percutaneous Endoscopic Approach (ICD-10-PCS; CPT 47610; principal; 2024-03-19 13:10)
DX: K80.00 Calculus of gallbladder with acute cholecystitis without obstruction (principal); F12.90 Cannabis use, unspecified, uncomplicated; F17.200 Nicotine dependence, unspecified, uncomplicated; Z87.820 Personal history of traumatic brain injury
CPT/HCPCS: 36415; 74177; 76705; 80053; 81001; 82248; 83690; 85025; 85610; 85730; 88304; 93005; 99284; J7030; J7050; Q9967; A4216; J2405